=== PATIENT | male | born 1985 | race Caucasian/White ===

== ENCOUNTER 2019-03-18 07:51 | Emergency (ER) | payer SELFPAY ==
[~2019-03-18] VITALS: Ht 175.3 cm; Wt 99.8 kg
[2019-03-18 07:57] VITALS: BP_SYST 144
[2019-03-18 09:15] VITALS: BP_SYST 144
[2019-03-18] MEDS ORDERED: DIPHENOXYLATE HCL/ATROP SULF 2.5 MG TAB PO ONE (09:15)
== END 2019-03-18 09:17 | disposition home or self-care (01) ==
LOC: SED 07:51
DX: K52.9 Noninfective gastroenteritis and colitis, unspecified (principal)
CPT/HCPCS: 99283